=== PATIENT | female | born 1970 ===

== ENCOUNTER 2018-05-02 07:15 | Inpatient (IN) | payer OTHER ==
[~2018-05-02] VITALS: Ht 165.1 cm; Wt 62.1 kg
[2018-05-02] MEDS ORDERED: M.V.I. ADULT10 ML PO (09:03)
[2018-05-02] MEDS ORDERED: NUVA RING (09:03)
[2018-05-02] MEDS ORDERED: SLOW RELEASE I142 MG PO (09:04)
[2018-05-05] MEDS ORDERED: POLY119PG PO (17:39)
[2018-05-05] MEDS ORDERED: NEURONTIN600 MG PO (17:39)
[2018-05-05] MEDS ORDERED: PERCOCET 5-3251 EACH PO (17:39)
== END 2018-05-07 19:12 | DRG 742 ==
LOC: O/R 05-05 07:00 → OB/GYN 05-05 08:23
PROVIDERS: Obstetrics & Gynecology; Surgery
PROC: 0BUT4JZ Supplement Diaphragm with Synthetic Substitute, Percutaneous Endoscopic Approach (ICD-10-PCS; 2018-05-05)
PROC: 0JX80ZZ Transfer Abdomen Subcutaneous Tissue and Fascia, Open Approach (ICD-10-PCS; 2018-05-05)
PROC: 0UT9FZZ Resection of Uterus, Via Natural or Artificial Opening With Percutaneous Endoscopic Assistance (ICD-10-PCS; principal; 2018-05-05 07:00)
PROC: 0WUF4JZ Supplement Abdominal Wall with Synthetic Substitute, Percutaneous Endoscopic Approach (ICD-10-PCS; 2018-05-05 07:00)
PROC: 30233N1 Transfusion of Nonautologous Red Blood Cells into Peripheral Vein, Percutaneous Approach (ICD-10-PCS; 2018-05-06)
DX: N80.0 Endometriosis of uterus (principal); K42.0 Umbilical hernia with obstruction, without gangrene; D62 Acute posthemorrhagic anemia; K44.9 Diaphragmatic hernia without obstruction or gangrene; K59.09 Other constipation; G89.18 Other acute postprocedural pain; N72 Inflammatory disease of cervix uteri